=== PATIENT | female | born 1995 | race Asian ===

== ENCOUNTER 2021-04-05 12:08 | Inpatient (IN) | payer OTHER ==
[2021-04-05 14:01] VITALS: BMI 29.0
[2021-04-05 15:35] LABS: BASO % 0.2 % (0-2.0); EOS % 0.3 % (0-4.5); HEMATOCRIT 29.1 % (32.4-45.2); HEMOGLOBIN 9.4 GM/dL (10.7-15.3); LYMPH % 15.8 % (8-40); MCH 20.1 pg (25.7-33.7); MCHC 32.4 g/dl (32.0-36.0); MEAN CELL VOLUME 61.9 fl (80-96); MEAN PLT VOLUME 9.8 fl (7.5-11.1); MONO % 6.7 % (3.8-10.2); PLATELET COUNT 179 10^3/uL (134-434); RDW 16.1 % (11.6-15.6); WHITE BLOOD COUNT 11.9 K/mm3 (4.0-10.0)
[2021-04-05 15:48] LABS: PROTHROMBIN TIME (PATIENT) 12.1 SEC (9.7-13.0)
[2021-04-05 15:51] LABS: ACTIVATED PTT 28.3 SECONDS (25.2-36.5)
[2021-04-05 15:58] LABS: CALCIUM 8.7 mg/dL (8.5-10.1)
[2021-04-05 15:59] LABS: BLOOD UREA NITROGEN 7.3 mg/dL (7-18)
[2021-04-05 16:02] LABS: CREATININE 0.4 mg/dL (0.55-1.3)
[2021-04-05 16:23] LABS: ANISOCYTOSIS 2+; MACROCYTOSIS 0; OVALOCYTE 2+; PLATELET ESTIMATE NORMAL; TEAR DROP CELLS 2+
[2021-04-05] MEDS ORDERED: AMPICILLIN - 2 GM in SODIUM CHLORIDE 100 ML IVPB ONE (19:20)
[2021-04-05] MEDS ORDERED: AMPICILLIN SODIUM 2 GM VIAL ONE (19:32)
[2021-04-05] MEDS ORDERED: AMPICILLIN SODIUM 1 GM VIAL ONE (23:20)
[2021-04-05] MEDS: ELECTROLYTE-148 SOLN 1,000 ML IV SCH (23:30)
[2021-04-05] MEDS: AMPICILLIN - 1 GM in SODIUM CHLORIDE 100 ML IVPB SCH (23:40)
[2021-04-06] MEDS: OXYTOCIN 30 UNITS in 0.9% NS 30 UNIT/500 ML INFUS.BAG IVPB SCH (01:40)
[2021-04-06] MEDS: AMPICILLIN - 1 GM in SODIUM CHLORIDE 100 ML IVPB SCH ×3 (04:15→12:00)
[2021-04-06] MEDS ORDERED: AMPICILLIN SODIUM 1 GM VIAL ONE ×3 (04:40→12:04)
[2021-04-06] MEDS ORDERED: FENTANYL/BUPIVACAINE/NS/PF - PCEA - 50 ML DISP.SYRIN EP ONE (08:15)
[2021-04-06] MEDS ORDERED: PCA PUMP NR ONE (08:15)
[2021-04-06] MEDS: FENTANYL/BUPIVACAINE/NS/PF - PCEA - 50 ML DISP.SYRIN EP SCH (08:55)
[2021-04-06] MEDS ORDERED: NALOXONE HCL 0.4 MG/ML VIAL IVPUSH PRN (09:23)
[2021-04-06] MEDS ORDERED: OXYTOCIN 20 UNITS in 0.9% NS 20 UNIT/1,000 ML INFUS.BAG IV ONE ×2 (10:49→12:04)
[2021-04-06] MEDS ORDERED: WITCH HAZEL 50% (TUCKS) 40 PAD/JAR PAD TP PRN (11:40)
[2021-04-06] MEDS ORDERED: BENZOCAINE 28 GM HEMORRHOIDAL OINTMENT TP PRN (11:40)
[2021-04-06] MEDS ORDERED: METHYLERGONOVINE MALEATE 0.2 MG/1 ML AMP IM PRN (11:40)
[2021-04-06] MEDS ORDERED: IBUPROFEN 600 MG TABLET (FP) PO PRN (11:40)
[2021-04-06] MEDS ORDERED: BISACODYL 10 MG SUPP.RECT RC PRN (11:40)
[2021-04-06] MEDS ORDERED: ACETAMINOPHEN 325 MG TABLET (FP) PO PRN (11:40)
[2021-04-06] MEDS ORDERED: BENZOCAINE 20% 57 GM BOTTLE TP PRN (11:40)
[2021-04-06] MEDS ORDERED: LIDOCAINE HCL 1% PRESERVATIVE FREE - 30ML VIAL ONE (12:33)
[2021-04-06] MEDS: OXYTOCIN 20 UNITS in 0.9% NS 20 UNIT/1,000 ML INFUS.BAG IV SCH (12:41)
[2021-04-06] MEDS ORDERED: IBUPROFEN 600 MG TABLET (FP) PO ONE (13:18)
[2021-04-06] MEDS ORDERED: FERROUS SO4 325 MG TABLET (FP) ONE (13:18)
[2021-04-06] MEDS: FERROUS SO4 325 MG TABLET (FP) PO SCH ×2 (13:19→17:30)
[2021-04-06 15:09] LABS: CORD BASE EXCESS -5.6 mmol/L (0-2); CORD HCO3 19.7 mmHg (20-29); CORD PCO2 38.1 mmHg (30-78); CORD pH 7.332 (7.14-7.44)
[2021-04-07] MEDS: FERROUS SO4 325 MG TABLET (FP) PO SCH ×3 (09:56→16:47)
[2021-04-07] MEDS: PRENATAL VITAMINS W/ FOLIC ACID TABLET (FP) PO SCH (09:56)
[2021-04-07 10:51] LABS: BASO % 0.2 % (0-2.0); EOS % 0.2 % (0-4.5); HEMATOCRIT 26.4 % (32.4-45.2); HEMOGLOBIN 8.4 GM/dL (10.7-15.3); LYMPH % 17.5 % (8-40); MCHC 31.7 g/dl (32.0-36.0); MONO % 6.1 % (3.8-10.2); PLATELET COUNT 163 10^3/uL (134-434); RDW 16.2 % (11.6-15.6); WHITE BLOOD COUNT 13.9 K/mm3 (4.0-10.0)
[2021-04-07 14:02] LABS: POC NITRAZINE POS
[2021-04-07] MEDS: ELECTROLYTE-148 SOLN 1,000 ML IV SCH (21:50)
[2021-04-07] MEDS: OXYTOCIN 30 UNITS in 0.9% NS 30 UNIT/500 ML INFUS.BAG IVPB SCH (21:50)
[2021-04-07] MEDS: OXYTOCIN 20 UNITS in 0.9% NS 20 UNIT/1,000 ML INFUS.BAG IV SCH (21:50)
[2021-04-07] MEDS: FENTANYL/BUPIVACAINE/NS/PF - PCEA - 50 ML DISP.SYRIN EP SCH (21:50)
[2021-04-07] MEDS ORDERED: SENNOSIDES/DOCUSATE COMBO (SENNA PLUS) TABLET (UD) PO PRN (22:00)
[2021-04-08] MEDS: FERROUS SO4 325 MG TABLET (FP) PO SCH ×2 (07:48→14:42)
[2021-04-08] MEDS: PRENATAL VITAMINS W/ FOLIC ACID TABLET (FP) PO SCH (09:54)
[2021-04-08 12:03] VITALS: BP 126/78; PULSE 76; TEMP 98.7
== END 2021-04-08 12:30 | disposition home or self-care (01) | DRG 560 ==
LOC: JDEL 12:08 → JLDR 12:10 → JDEL 12:33 → J3W 04-06 14:45
PROVIDERS: ADMIT Obstetrics & Gynecology; ATTEND Obstetrics & Gynecology
PROC: 0W8NXZZ Division of Female Perineum, External Approach (ICD-10-PCS; principal; 2021-04-06)
PROC: 10E0XZZ Delivery of Products of Conception, External Approach (ICD-10-PCS; 2021-04-06)
DX: O42.02 Full-term premature rupture of membranes, onset of labor within 24 hours of rupture (principal); O99.03 Anemia complicating the puerperium; D64.89 Other specified anemias; Z37.0 Single live birth; Z3A.36 36 weeks gestation of pregnancy
CPT/HCPCS: 36415; 36600; 59409; 80048; 82803; 83986-QW; 85025; 85461; 85610; 85730; 86780; 86850; 86870; 86900; 86901; 86902; 86999; C9803; U0003; U0005